=== PATIENT | female | born 1980 | race Caucasian/White ===

== ENCOUNTER 2022-04-28 00:34 | Day surgery (SDC) | payer MEDICARE, SELFPAY ==
[2022-04-21 14:24] VITALS: BMI 25.9
[2022-04-28 12:42] VITALS: BP 105/66; PULSE 82; RESP 18; TEMP 36.6; O2SAT 100
--- NOTE | 2022-04-28 12:47 | PM.IMHP ---
H&P: HPI History of Present Illness Date/Time: 04/28/22 12:47 Chief Complaint: Heartburn Narrative: this is a 42-year-old white female patient with a history of traumatic brain injury. She also has a history of gastric sleeve for weight loss. She has reports for many years has had heartburn and acid regurgitation. When she eats food it will passed slowly into the stomach. She has been treated initially with omeprazole the dose was increased to b.i.d. dose with no change in symptoms. 2-3 weeks ago primary care service change medications to Protonix 40mg p.o. b.i.d. supplemented by Carafate slurry twice a day. Her symptoms have persisted with substernal burning and slow passage of eating through the chest. Patient denies any to weight loss related to this no obvious bleeding an EGD is requested because of ongoing heartburn and substernal burning. Family history is noncontributory. Review of Systems Review of Systems: Review of systems noncontributory. 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 Postsurgical menopause PTSD (post-traumatic stress disorder) Thoracic outlet syndrome Surgical History Surgical History History of gastric surgery Hx of fusion of cervical spine S/P hysterectomy Social History Social History Years smoked: 5 Smoking status: Former smoker Alcohol intake: current Alcohol use details: on occasion Substance use: never Substance use type: marijuana Last use: months ago Living arrangements: with family Spiritual care concerns: No Meds Home Medications and Allergies Home Medications Medication Instructions Recorded Confirmed Type clonazepam 1 mg tablet 1 mg PO TID 03/27/22 04/19/22 History eletriptan 40 mg tablet See Rx Instructions PO .COMPLEX 03/27/22 04/19/22 History esterified 1 tablet PO DAILY 03/27/22 04/19/22 History estrogens-methyltestosterone 1.25 mg-2.5 mg tablet hydroxyzine pamoate 100 mg capsule 100 mg PO BID 03/27/22 04/19/22 History ibuprofen 600 mg tablet 600 mg PO BID PRN Pain 03/27/22 04/19/22 History ivabradine 5 mg tablet (Corlanor) 5 mg PO BID 03/27/22 04/19/22 History methocarbamol 500 mg tablet 1,000 mg PO TID 03/27/22 04/19/22 History pantoprazole 40 mg tablet,delayed 40 mg PO BID #60 tabs 03/27/22 04/19/22 Rx release trazodone 100 mg tablet 200 mg PO QHS PRN Insomnia 03/27/22 04/19/22 History vilazodone 40 mg tablet (Viibryd) 40 mg PO DAILY 03/27/22 04/19/22 History ferrous sulfate 325 mg (65 mg 325 mg PO BID 8 weeks #112 tabs 04/05/22 04/19/22 Rx iron) tablet appbswwtyx-czyeaqogfzwyv-lyhcutij 1 cap PO QID PRN pain #60 caps 04/17/22 04/19/22 Rx 50 mg-300 mg-40 mg capsule (Fioricet) midodrine 2.5 mg tablet 2.5 mg PO BID #60 tabs 04/17/22 04/19/22 Rx rimegepant 75 mg disintegrating 75 mg PO ONCE PRN Pain 04/17/22 04/19/22 History tablet (Nurtec ODT) sucralfate 1 gram tablet See Rx Instructions .Route 04/17/22 04/19/22 Rx .COMPLEX #360 tabs hydrocodone 5 mg-acetaminophen 325 1 tablet PO BID PRN pain #30 tabs 04/19/22 04/20/22 Rx mg tablet vilazodone 40 mg tablet (Viibryd) 40 mg PO DAILY 04/19/22 04/19/22 History Allergies Allergy/AdvReac Type Severity Reaction Status Date / Time gabapentin Allergy Intermediate Depression Verified 04/28/22 12:38 pregabalin [From Lyrica] Allergy Intermediate Depression Verified 04/28/22 12:38 cefaclor Allergy Unknown Hives Verified 04/28/22 12:38 penicillin G Allergy Unknown Hives Verified 04/28/22 12:38 sulfamethizole All
[2022-04-28] MEDS: LACTATED RINGERS 1,000 ML 150 ML IV CONT (12:51)
--- NOTE | 2022-04-28 13:21 | WPDANESEPPF ---
Anes - Initial Pre Proc Eval Procedure: Operation Date: 04/28/22 13:45 Proposed Procedures p Esophagogastroduodenoscopy - Shawn Conner MD Date/Time: 04/28/22 13:21 Surgeon: Shawn Conner MD Pre Op Diagnosis: GERD Patient Data Age: 42 Gender: F Height: 1.78 m Weight: 83.7 kg Last Vital Signs Temp 97.8 F 04/28/22 12:42 Pulse 82 04/28/22 12:42 Resp 18 04/28/22 12:42 BP 105/66 04/28/22 12:42 Pulse Ox 100 04/28/22 12:42 O2 Del Method Room Air 04/28/22 12:42 Allergies Allergy/AdvReac Type Severity Reaction Status Date / Time gabapentin Allergy Intermediate Depression Verified 04/28/22 12:38 pregabalin [From Lyrica] Allergy Intermediate Depression Verified 04/28/22 12:38 cefaclor Allergy Unknown Hives Verified 04/28/22 12:38 penicillin G Allergy Unknown Hives Verified 04/28/22 12:38 sulfamethizole Allergy Unknown Hives Verified 04/28/22 12:38 trimethoprim Allergy Unknown Hives Verified 04/28/22 12:38 KNFA Allergy Unknown Unknown Uncoded 04/28/22 12:38 PCN; SEPTRA; CECLOR Allergy Unknown Hives Uncoded 04/28/22 12:38 Home Medications Medication Instructions Recorded Confirmed Type clonazepam 1 mg tablet 1 mg PO TID 03/27/22 04/19/22 History eletriptan 40 mg tablet See Rx Instructions PO .COMPLEX 03/27/22 04/19/22 History esterified 1 tablet PO DAILY 03/27/22 04/19/22 History estrogens-methyltestosterone 1.25 mg-2.5 mg tablet hydroxyzine pamoate 100 mg capsule 100 mg PO BID 03/27/22 04/19/22 History ibuprofen 600 mg tablet 600 mg PO BID PRN Pain 03/27/22 04/19/22 History ivabradine 5 mg tablet (Corlanor) 5 mg PO BID 03/27/22 04/19/22 History methocarbamol 500 mg tablet 1,000 mg PO TID 03/27/22 04/19/22 History pantoprazole 40 mg tablet,delayed 40 mg PO BID #60 tabs 03/27/22 04/19/22 Rx release trazodone 100 mg tablet 200 mg PO QHS PRN Insomnia 03/27/22 04/19/22 History vilazodone 40 mg tablet (Viibryd) 40 mg PO DAILY 03/27/22 04/19/22 History ferrous sulfate 325 mg (65 mg 325 mg PO BID 8 weeks #112 tabs 04/05/22 04/19/22 Rx iron) tablet sclrsnvoxc-caadqeybsdvyk-uynbqpwq 1 cap PO QID PRN pain #60 caps 04/17/22 04/19/22 Rx 50 mg-300 mg-40 mg capsule (Fioricet) midodrine 2.5 mg tablet 2.5 mg PO BID #60 tabs 04/17/22 04/19/22 Rx rimegepant 75 mg disintegrating 75 mg PO ONCE PRN Pain 04/17/22 04/19/22 History tablet (Nurtec ODT) sucralfate 1 gram tablet See Rx Instructions .Route 04/17/22 04/19/22 Rx .COMPLEX #360 tabs hydrocodone 5 mg-acetaminophen 325 1 tablet PO BID PRN pain #30 tabs 04/19/22 04/20/22 Rx mg tablet vilazodone 40 mg tablet (Viibryd) 40 mg PO DAILY 04/19/22 04/19/22 History Patient hx anesthesia problems: none Family hx anesthesia problems: none Results Review: All pre-operative results and documents have been reviewed as part of the pre-operative evaluation. 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
[2022-04-28 14:16] VITALS: BP 106/68; PULSE 64; RESP 20; O2SAT 100
[2022-04-28 14:26] VITALS: BP 111/71; PULSE 67; RESP 14; O2SAT 100
[2022-04-28 14:36] VITALS: BP 116/72; PULSE 65; RESP 24; O2SAT 100
== END 2022-04-28 14:54 | disposition home or self-care (01) ==
PROVIDERS: PCP Internal Medicine; Visit Provider Internal Medicine Gastroenterology
PROC: 0DJ08ZZ Inspection of Upper Intestinal Tract, Via Natural or Artificial Opening Endoscopic (ICD-10-PCS; CPT 43235; principal; 2022-04-28 13:45)
DX: K21.9 Gastro-esophageal reflux disease without esophagitis (principal); R07.89 Other chest pain; M79.7 Fibromyalgia; F43.10 Post-traumatic stress disorder, unspecified; F32.9 Major depressive disorder, single episode, unspecified; G54.0 Brachial plexus disorders; I95.9 Hypotension, unspecified; E87.1 Hypo-osmolality and hyponatremia; Z98.1 Arthrodesis status; Z87.891 Personal history of nicotine dependence; F12.90 Cannabis use, unspecified, uncomplicated; Z87.820 Personal history of traumatic brain injury; Z98.890 Other specified postprocedural states
CPT/HCPCS: 43239; 87081; J2001; J2704; J7120

== ENCOUNTER 2022-08-29 13:13 | Emergency (ER) | payer MEDICARE, SELFPAY ==
--- NOTE | ~2022-08-29 | XR_ITS ---
AP and oblique views of the right ribs Clinical History: Pain Findings: No acute rib fracture is seen. Osseous alignment is anatomic. Lungs are clear, without foca l consolidation or pleural effusion. Cardiomediastinal contour is within normal limits. Soft tissues are unremarkable. Impression: No acute rib fracture is seen. Reviewed, dictated and finalized at [facility]. URE MANAGER Impression: No acute rib fracture is seen.
[2022-08-29 13:25] VITALS: BP 131/91; PULSE 92; RESP 20; TEMP 36.6; O2SAT 100
[2022-08-29 15:29] VITALS: BP 144/82; PULSE 94; RESP 18; TEMP 36.4; O2SAT 98
== END 2022-08-29 16:39 | disposition left against medical advice (07) ==
LOC: ANHED 17:17
PROVIDERS: Emergency Provider Emergency Medicine; PCP Internal Medicine
DX: R07.81 Pleurodynia (principal)
CPT/HCPCS: 71100; 99199

== ENCOUNTER 2022-08-30 12:40 | Outpatient (CLI) | payer MEDICARE, SELFPAY ==
--- NOTE | ~2022-08-30 | XR_ITS ---
EXAM: XR cervical spine 4-5V DATE: 08/30/2022 13:07 HISTORY: W19.XXXA - FALL WHILE ICE SKATING A FEW DAYS AGO . COMPARISON: None available. FINDINGS: ACDF with well positioned interbody device at C6-7 Craniocervical association and atlantoax ial joint are aligned. No prevertebral soft tissue swelling. Vertebral bodies are aligned. Vertebral body heights are maintained. Mild disc space narrowing and marginal osteophytosis at C4-5 and C5-6. M ild lower cervical facet sclerosis. IMPRESSION: No acute fracture or traumatic malalignment detected in the cervical spine. Reviewed, dictated and finalized at location K. L PRINTER IMPRESSION: No acute fracture or traumatic malalignment detected in the cervica l spine.
--- NOTE | ~2022-08-30 | XR_ITS ---
EXAM: XR shoulder LT min 2V DATE: 08/30/2022 13:07 HISTORY: W19.XXXA - Unspecified fall, initial encounter . COMPARISON: None available. FINDINGS: Partially visualized cervical fusion hardware Normal mineralization. No fracture or disloca tion. No lytic or blastic lesion. Joint spaces are maintained. No erosion or periosteal change. Soft tissues within normal limits. IMPRESSION: Unremarkable left shoulder radiograph findings. Reviewed, dictated and finalized at location K. 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
--- NOTE | ~2022-08-30 | XR_ITS ---
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 RESULT: Lines, tubes, and devices: ACDF hardware. Lungs and pleura: Clear. Cardiothymic silhouette: Stable. Other: No acute osseous or upper abdominal finding. Subacute/chronic right fifth anterolateral rib f racture. IMPRESSION: No acute cardiopulmonary process. Subacute/chronic right fifth anterolateral rib fracture Reviewed, dictated and finalized at location K. STOCK YARD ATTENDANT IMPRESSION: No acute cardiopulmonary process. Subacute/chronic right fifth anterolateral ri b fracture
== END 2022-08-30 12:41 | disposition home or self-care (01) ==
PROVIDERS: PCP Internal Medicine; Visit Provider Internal Medicine
DX: M54.2 Cervicalgia (principal); M25.512 Pain in left shoulder; R07.81 Pleurodynia
CPT/HCPCS: 71046; 71100; 72050; 73030

== ENCOUNTER 2023-02-03 09:05 | Observation (INO) | payer MEDICARE, OTHER, MEDICAID, SELFPAY ==
[2023-02-03] VITALS (22 sets, daily range): BP systolic 119–146; BP diastolic 67–94; PULSE 69–92; RESP 13–23; TEMP 36.4–36.8; O2SAT 98–100
--- NOTE | ~2023-02-03 | MR_ITS ---
EXAMINATION: MR abdomen wo/w con DATE: 02/04/2023 08:55 INDICATION: Liver mass. TECHNIQUE: Magnetic resonance imaging (MRI) of the abdomen was performed without and with 18 mL Multi Miles intravenous contrast. COMPARISON: CT abdomen and pelvis 02/03/2023, abdomen ultrasound 02/04/2023 FINDINGS: In segment IVb of the liver, there is a 2.5 cm arterially hyperenhancing mass without washout that de monstrates faintly increased T2-weighted signal intensity. No central scar or microscopic fat. The ga llbladder, spleen, pancreas, adrenal glands, and kidneys are normal. There are no dilated loops of gricelda wel. There are no pathologically enlarged lymph nodes. There is no free intraperitoneal fluid. There is a hemangioma in L2 vertebral body. IMPRESSION: 1. 2.5 cm liver mass. In the absence of known malignancy or chronic liver disease, this finding is li kathryn focal nodular hyperplasia or an adenoma. Reviewed, dictated and finalized at location E. IMPRESSION: 1. 2.5 cm liver mass. In the absence of known malignancy or chronic liver disea se, this finding is likely focal nodular hyperplasia or an adenoma.
--- NOTE | ~2023-02-03 | CT_ITS ---
EXAMINATION: CT abdomen pelvis w con DATE: 02/03/2023 10:33 INDICATION: Transaminitis TECHNIQUE: Computed tomography (CT) of the abdomen and pelvis was performed with 100 cc Omnipaque 350 intravenous contrast. The dose-length product was 792.79 mGy-cm. Automated exposure control and iter ative reconstruction technique were employed. COMPARISON: None. FINDINGS: Lung bases are unremarkable. Heart size normal. No significant pleural or pericardial effus ion. There are changes of gastric bypass surgery. No significant vascular abnormality. No lymphadenop athy. There is a hypervascular lesion of the left hepatic lobe contiguous with the falciform ligament measu ring 2.7 x 2.8 x 2 cm with a slightly irregular contour. Spleen, pancreas, adrenal glands and kidney s are unremarkable. Gallbladder is present. There is fluid throughout the small bowel and colon. No d efinite obstruction. Gallbladder is present. No free air or free fluid. IMPRESSION: 1. Solitary hypervascular mass of the liver measuring 2.8 cm. Differential diagnosis includes transie nt hepatic attenuation, focal fatty sparing, benign hepatic adenoma or hemangioma, as well as primary and metastatic malignancy. Recommend correlation with MRI without and with contrast with delayed seq uences. Reviewed, dictated and finalized at location A. IMPRESSION: 1. Solitary hypervascular mass of the liver measuring 2.8 cm. Differential diag nosis includes transient hepatic attenuation, focal fatty sparing, benign hepat ic adenoma or hemangioma, as well as primary and metastatic malignancy. Recomme nd correlation with MRI without and with contrast with delayed sequences.
--- NOTE | ~2023-02-03 | US_ITS ---
US abdomen limited INDICATION: Liver mass PROCEDURE: Realtime right upper abdominal ultrasound. COMPARISON: No prior studies for comparison. FINDINGS: The pancreas is normal without focal mass or pancreatic ductal dilation. Liver echotexture is normal without focal mass or intrahepatic biliary dilatation. There is normal directional flow i n the portal vein. The gallbladder is normal without stones, gallbladder wall thickening or pericholecystic fluid. Comm on bile duct measures 4 mm. No sonographic Newton's sign. IMPRESSION: 1: Normal limited abdominal ultrasound. Reviewed, dictated and finalized at location A.
[2023-02-03 09:52] LABS: Basophils Percent Auto 0.6 % (0.2-1.2); Eosinophils Percent Auto 0.2 % (0-4.4); Hematocrit 40.9 % (37.0-47.0); Hemoglobin 13.4 g/dL (12.0-15.0); Immature Granulocyte Absolute 0.02 K/mm3 (0.00-0.031); Immature Granulocyte Percent A 0.3 % (0-0.5); Lymphocytes Absolute Auto 2.02 K/mm3 (0.9-3.2); Lymphocytes Percent Auto 30.4 % (18.3-44.2); Mean Corpuscular HGB Conc 32.8 g/dl (32-36); Mean Corpuscular Hemoglobin 29.1 pg (26-34); Mean Corpuscular Volume 88.9 fl (80-100); Mean Platelet Volume 8.7 fl (7.4-10.4); Monocytes Absolute Auto 0.6 K/mm3 (0.1-0.6); Monocytes Percent Auto 8.4 % (2.6-8.5); Neutrophils Percent Auto 60.1 % (45.5-73.1); Platelet Count Result 366 k/mm3 (150-375); White Blood Count 6.7 K/mm3 (4.5-10.0)
[2023-02-03 10:05] LABS: Albumin Level 4.7 g/dL (3.5-5.1); Alkaline Phosphatase 89 U/L (38-126); Anion Gap 5 mmol/L (8-16); Aspartate Amino Transferase 341 U/L (14-36); Bilirubin,Total 0.6 mg/dL (0.2-1.3); Blood Urea Nitrogen 11 mg/dL (7-17); Carbon Dioxide 31 mmol/L (22-30); Chloride 96 mmol/L (98-107); Estimated Glomerular Filt Rate > 60; Glucose 83 mg/dL (65-110); Potassium 4.1 mmol/L (3.4-5.0); Sodium 132 mmol/L (137-145)
[2023-02-03 10:13] LABS: Alanine Aminotransferase 796 U/L (6-35)
[2023-02-03 10:15] LABS: Monoscreen Negative (Negative); Negative Monotest Control Negative (Negative); Positive Monotest Control Positive (Positive)
[2023-02-03 10:21] LABS: Appearance Urine Cloudy (Clear); Bacteria Urine Rare /hpf; Bilirubin Urine Negative (Negative); Blood Urine Negative (Negative); Color Urine Yellow (Yellow); Glucose Urine UA Negative (Negative); Ketones Urine Negative (Negative); Leukocyte Esterase Ur 2+ LEU/UL (Negative); Need Manual Microscopic Reviewed; Nitrate Urine Negative (Negative); Non Pathogenic Casts 0-2; Protein Urine Negative (Negative); RBC Urine 0-2 /hpf (0-2); Squamous Epithelial Cell Urine Moderate /hpf (Few); Urobilinogen Urine 0.2 mg/dL (<2.0); WBC Urine 0-5 /hpf; pH Urine 7.5 (5.0-9.0)
[2023-02-03 10:23] LABS: Add Urine Microscopic? YES
[2023-02-03 10:35] LABS: Hepatitis B Surface Antigen Negative (Negative)
[2023-02-03 10:41] LABS: HAV RESULT Negative (Negative); Hepatitis B Core IgM Result Negative (Negative)
[2023-02-03 10:53] LABS: Hepatitis C Virus Antibody Negative (Negative)
--- NOTE | 2023-02-03 11:08 | ED.GENADULT ---
HPI - General Adult General Chief complaint: Recheck/Abnormal Lab/Rx Stated complaint: dr sent for blood work/US Time Seen by Provider: 02/03/23 09:17 History of Present Illness HPI narrative: Patient is a 41-year-old female who presents ER with abnormal outpatient labs. She had an abnormal AST and ALT and was sent here by her PCP in for further evaluation. She has been having some issues with hyponatremia instantly discontinuing her medication and then slowly adding them back. She has a history of been getting regular lab work done today and expected AST and ALT came back elevated. She has no right upper quadrant abdominal pain or pain with drinking. She said no fevers or chills or sweats. No unexplained weight loss nausea reports 20 pound weight gain. She feels some slight bloating in her lower abdomen but no urinary frequency urgency or dysuria. No discoloration in urine. Related Data Home Medications Medication Instructions Recorded Confirmed clonazepam 1 mg tablet 1 mg PO QID 02/03/23 02/03/23 duloxetine 60 mg capsule,delayed 60 mg PO DAILY 02/03/23 02/03/23 release eletriptan 40 mg tablet 40 mg PO BID PRN Migraine Headache 02/03/23 02/03/23 estradiol 1 mg tablet 1 mg PO QAM 02/03/23 02/03/23 hydroxyzine pamoate 100 mg capsule 100 mg PO BID 02/03/23 02/03/23 ivabradine 5 mg tablet (Corlanor) 5 mg PO BID 02/03/23 02/03/23 lidocaine 5 % topical patch 1 patch topical DAILY PRN Pain 02/03/23 02/03/23 midodrine 2.5 mg tablet 5 mg PO BID 02/03/23 02/03/23 pantoprazole 40 mg tablet,delayed 40 mg PO BID 02/03/23 02/03/23 release promethazine 25 mg tablet 25 mg PO Q6H PRN Nausea 02/03/23 02/03/23 rimegepant 75 mg disintegrating 75 mg PO EVERY OTHER DAY 02/03/23 02/03/23 tablet (Nurtec ODT) sucralfate 1 gram tablet 1 g PO BID PRN Acid Reflux 02/03/23 02/03/23 sumatriptan succinate 100 mg tablet 100 mg PO BID PRN Migraine Headache 02/03/23 02/03/23 suvorexant 10 mg tablet (Belsomra) 20 mg PO HS 02/03/23 02/03/23 vilazodone 40 mg tablet 40 mg PO DAILY 02/03/23 02/03/23 Allergies Allergy/AdvReac Type Severity Reaction Status Date / Time cefaclor [From Ceclor] Allergy Unknown Verified 02/03/23 15:41 gabapentin Allergy Unknown Verified 02/03/23 15:41 Penicillins Allergy Unknown Verified 02/03/23 15:41 pregabalin [From Lyrica] Allergy Unknown Verified 02/03/23 15:41 sulfamethoxazole Allergy Unknown Verified 02/03/23 15:41 [From Septra] trimethoprim [From Septra] Allergy Unknown Verified 02/03/23 15:41 Review of Systems Review of Systems: All systems reviewed & are unremarkable except as noted in HPI and below Constitutional: Constitutional: Denies chills, Denies fatigue and Denies fever(s) ENT: Denies nasal congestion and Denies sore throat Cardiovascular: Cardiovascular: Denies chest pain, Denies rapid heart rate and Denies radiating jaw, neck or arm pain Respiratory: Respiratory: Denies cough and Denies dyspnea Gastrointestinal: Gastrointestinal: Denies abdominal pain, Denies diarrhea, Denies nausea and Denies vomiting Genitourinary: Genitourinary: Denies nocturia and Denies dysuria [facility] Past Medical History Medical History (Updated 02/03/23 @ 17:57 by Yesica Damon NP) Chronic diarrhea Chronic pain Elevated liver enzymes Migraine Orthostatic hypotension POTS (postural orthostatic tachycardia syndrome) PTSD (post-traumatic stress disorder) Rib fracture Thoracic outlet syndrome Surgical History Surgical History (Updated 02/03/23 @ 17:38 by Yesica Damon NP) H/O gastric sleeve H/O oophorectomy H/O: hysterectomy History of tonsillectomy S/P cervical spinal fusion Family History Family History (Updated 02/03/23 @ 17:43 by Yesica Damon NP) Sibling Rheumatoid arthritis Psoriatic arthritis Pancreatitis Lupus Social History Social History Smoking status: Former smoker Alcohol intake: former Substance use: current Substance use type: marijuana Lack of Transpor
--- NOTE | 2023-02-03 12:30 | ADMGEN ---
This patient, Amber Rodriguez, was admitted to Medical Room 347-. Patient/family oriented to hospital policies and general routines including ID bracelet, bed and alarms, visiting hours, pain management, procedures, bathroom and other care routines, personal items, smoking policy, room service/diet, and visiting hours. Information on how to activate the Rapid Response Team has been discussed. Patient/Family are encouraged to report perceived risks to care and to ask questions if they do not understand what they are told or what they should do.
--- NOTE | 2023-02-03 12:47 | PM.IMHP ---
H&P: HPI History of Present Illness Date/Time: 02/03/23 12:47 Chief Complaint: ABNORMAL LABS Narrative: Is a 42-year-old female patient who stated that she had labs and and imaging performed and she checked her portal and noticed that she had elevated liver enzymes. Her primary care doctor stated that she would be worked up next week and then he returned to full called ordered to come to the emergency room. The patient stated that she has thoracic outlet syndrome. The patient states that she has chronic pain to her lower pelvic area as well. Her sodium level is 132. AST is 341 and ALT 796. Abdominal pelvis CT was read as following. Solitary hypervascular mass of the liver measuring 2.8 cm. Differential diagnosis includes transient hepatic attenuation, focal fatty sparing, benign hepatic adenoma or hemangioma, as well as primary and metastatic malignancy. Recommend correlation with MRI without and with contrast with delayed sequences. the patient was complaining of lower pelvic pain which is chronic. She was given Motrin. She was given Zofran in the in emergency room. The patient is being admitted to observation status on the date of service is 02/03/2023 Review of Systems Review of Systems: All systems reviewed & are unremarkable except as noted in HPI and below Constitutional: Constitutional: Reports as per HPI and Reports no additional constitutional complaints Eyes: Eyes: Reports as per HPI and Reports no additional eye complaints ENT: Reports system reviewed and no additional complaints, except as documented and Reports Normal hearing present Cardiovascular: Cardiovascular: Reports no additional cardiovascular complaints Respiratory: Respiratory: Reports no additional respiratory complaints and Reports no additional respiratory complaints Gastrointestinal: Gastrointestinal: Reports as per HPI and Reports no additional gastrointestinal complaints Musculoskeletal: Musculoskeletal: Reports no additional musculoskeletal complaints Integumentary/Breasts: Skin/Breast: Reports system reviewed and no additional complaints, except as docu and Reports as per HPI Neurologic: Reports system reviewed and no additional complaints, except as documented, Reports as per HPI and Reports Normal hearing present Psychiatric: Psychiatric: Reports no additional psychiatric complaints and Reports as per HPI Endocrine: Endocrine: Reports no additional endocrine complaints Hematologic/Lymphatic: Hematologic/Lymphatic: Reports no additional hematologic/lymphatic complaints Allergic/Immunologic: Allergic/Immunologic: Reports no additional allergic/immunologic complaints [facility] Past Medical History Medical History (Updated 02/03/23 @ 17:57 by Yesica Damon NP) Chronic diarrhea Chronic pain Elevated liver enzymes Migraine Orthostatic hypotension POTS (postural orthostatic tachycardia syndrome) PTSD (post-traumatic stress disorder) Rib fracture Thoracic outlet syndrome Surgical History Surgical History (Updated 02/03/23 @ 17:38 by Yesica Damon NP) H/O gastric sleeve H/O oophorectomy H/O: hysterectomy History of tonsillectomy S/P cervical spinal fusion Family History Family History (Updated 02/03/23 @ 17:43 by Yesica Damon NP) Sibling Rheumatoid arthritis Psoriatic arthritis Pancreatitis Lupus Social History Social History Smoking status: Former smoker Alcohol intake: former Substance use: current Substance use type: marijuana Lack of Transportation: No Lack of Food: Never True Current Housing: I Have Housing Concerned About Future Housing: No Difficulty Paying Gas/Electric Bills: No Difficulty Paying for Meds: No Currently Unemployed: No Education: Trade/Vocational Certificate Difficulty w/ Childcare or Family Care: No Spiritual care concerns: No Meds Home Medications and Allergies Home Medications Medication Instructions Recorded Confirmed Type clonazepa
[2023-02-03] MEDS: MIDODRINE HCL 2.5 MG TABLET 5 MG PO (18:10)
[2023-02-03] MEDS: hydrOXYzine pamoate 25 MG CAPSULE 100 MG PO (18:10)
[2023-02-03] MEDS: clonazePAM (*CRX) 0.5 MG TABLET 1 MG PO ×2 (18:16→21:31)
[2023-02-03] MEDS: LIDOCAINE 5% PATCH 1 PATCH TOPICAL (18:27)
[2023-02-03] MEDS: PANTOPRAZOLE 40 MG TABLET PO (21:31)
[2023-02-03] MEDS: LORazepam INJ (*CRX) 2 MG/ML VIAL 0.5 MG IV PUSH (21:31)
[2023-02-04] MEDS: LORazepam INJ (*CRX) 2 MG/ML VIAL 0.5 MG IV PUSH ×4 (01:28→20:27)
[2023-02-04 04:51] VITALS: BP 118/67; PULSE 91; RESP 20; TEMP 36.1; O2SAT 100
[2023-02-04 05:30] LABS: Basophils Percent Auto 0.5 % (0.2-1.2); Eosinophils Percent Auto 0.5 % (0-4.4); Hematocrit 38.2 % (37.0-47.0); Hemoglobin 12.8 g/dL (12.0-15.0); Immature Granulocyte Absolute 0.02 K/mm3 (0.00-0.031); Immature Granulocyte Percent A 0.3 % (0-0.5); Lymphocytes Absolute Auto 2.88 K/mm3 (0.9-3.2); Lymphocytes Percent Auto 50.1 % (18.3-44.2); Mean Corpuscular HGB Conc 33.5 g/dl (32-36); Mean Corpuscular Hemoglobin 29.5 pg (26-34); Mean Platelet Volume 8.6 fl (7.4-10.4); Monocytes Absolute Auto 0.6 K/mm3 (0.1-0.6); Monocytes Percent Auto 9.7 % (2.6-8.5); Neutrophils Absolute Auto 2.2 K/mm3 (1.3-6.7); Neutrophils Percent Auto 38.9 % (45.5-73.1); Platelet Count Result 319 k/mm3 (150-375); Red Blood Count 4.34 M/mm3 (4.2-5.4); Red Cell Distribution Width 12.9 % (11.5-14.5); White Blood Count 5.8 K/mm3 (4.5-10.0)
[2023-02-04] MEDS: SUMAtriptan SUCCINATE 25 MG TABLET 100 MG PO ×2 (05:34→14:19)
[2023-02-04 05:39] LABS: Alanine Aminotransferase 563 U/L (6-35); Albumin Level 4.3 g/dL (3.5-5.1); Alkaline Phosphatase 90 U/L (38-126); Anion Gap 5 mmol/L (8-16); Aspartate Amino Transferase 179 U/L (14-36); Bilirubin,Total 0.5 mg/dL (0.2-1.3); Blood Urea Nitrogen 8 mg/dL (7-17); Calcium 8.9 mg/dL (8.4-10.2); Carbon Dioxide 31 mmol/L (22-30); Chloride 98 mmol/L (98-107); Estimated Glomerular Filt Rate > 60; Glucose 89 mg/dL (65-110); Lactate Dehydrogenase 175 U/L (120-246); Magnesium 2.1 mg/dL (1.6-2.3); Potassium 4.3 mmol/L (3.4-5.0); Sodium 134 mmol/L (137-145)
[2023-02-04 05:46] LABS: Lactic Acid Reflex < 0.5 mmol/L (0.7-2.0)
[2023-02-04] MEDS: LORazepam INJ (*CRX) 2 MG/ML VIAL IV PUSH (07:54)
[2023-02-04] MEDS: clonazePAM (*CRX) 0.5 MG TABLET 1 MG PO ×4 (09:28→20:27)
[2023-02-04] MEDS: MIDODRINE HCL 2.5 MG TABLET 5 MG PO ×2 (09:29→17:02)
[2023-02-04] MEDS: PANTOPRAZOLE 40 MG TABLET PO ×2 (09:29→20:27)
[2023-02-04 09:30] VITALS: PULSE 91; RESP 20; O2SAT 100
[2023-02-04] MEDS: estradioL 1 MG TABLET PO (09:30)
[2023-02-04] MEDS: hydrOXYzine pamoate 25 MG CAPSULE 100 MG PO ×2 (09:30→17:02)
--- NOTE | 2023-02-04 09:56 | PM.IMPN ---
Progress Note: A&P Assessment and Plan (1) Liver mass: Code(s): R16.0 - Hepatomegaly, not elsewhere classified Status: Acute Assessment and Plan: MRI of the abdomen done, report pending. Liver ultrasound normal GI has been consulted. CT abdomen: 1. Solitary hypervascular mass of the liver measuring 2.8 cm. Differential diagnosis includes transient hepatic attenuation, focal fatty sparing, benign hepatic adenoma or hemangioma, as well as primary and metastatic malignancy. Recommend correlation with MRI without and with contrast with delayed sequences. (2) Elevated liver enzymes: Code(s): R74.8 - Abnormal levels of other serum enzymes Status: Acute Assessment and Plan: Trending down GI has been consulted Ultrasound of the abdomen normal MRI done, report pending Hepatitis panel negative. (3) Chronic pain: Code(s): G89.29 - Other chronic pain Status: Acute Assessment and Plan: The patient has a history of migraines. Duloxetine can elevate the liver enzymes. May resume if okay with GI specialist. (4) POTS (postural orthostatic tachycardia syndrome): Code(s): G90.A - Postural orthostatic tachycardia syndrome [POTS] Status: Acute Assessment and Plan: The patient will need compression hose. Continue with midodrine (5) Thoracic outlet syndrome: Code(s): G54.0 - Brachial plexus disorders Status: Acute Assessment and Plan: the patient is on duloxetine. May resume if okay with GI specialist. (6) Migraine: Code(s): G43.909 - Migraine, unspecified, not intractable, without status migrainosus Status: Acute Assessment and Plan: Continue home medication (7) PTSD (post-traumatic stress disorder): Code(s): F43.10 - Post-traumatic stress disorder, unspecified Status: Acute Assessment and Plan: continue home medications. Subjective Date/time seen: 02/04/23 09:56 Interval history: No abdominal pain, nausea vomiting Review of Systems Review of Systems: All systems reviewed & are unremarkable except as noted in HPI and below Constitutional: Constitutional: Reports as per HPI and Reports no additional constitutional complaints Eyes: Eyes: Reports as per HPI and Reports no additional eye complaints ENT: Reports system reviewed and no additional complaints, except as documented and Reports Normal hearing present Cardiovascular: Cardiovascular: Reports no additional cardiovascular complaints Respiratory: Respiratory: Reports no additional respiratory complaints and Reports no additional respiratory complaints Gastrointestinal: Gastrointestinal: Reports as per HPI and Reports no additional gastrointestinal complaints Musculoskeletal: Musculoskeletal: Reports no additional musculoskeletal complaints Integumentary/Breasts: Skin/Breast: Reports system reviewed and no additional complaints, except as docu and Reports as per HPI Neurologic: Reports system reviewed and no additional complaints, except as documented, Reports as per HPI and Reports Normal hearing present Psychiatric: Psychiatric: Reports no additional psychiatric complaints and Reports as per HPI Endocrine: Endocrine: Reports no additional endocrine complaints Hematologic/Lymphatic: Hematologic/Lymphatic: Reports no additional hematologic/lymphatic complaints Allergic/Immunologic: Allergic/Immunologic: Reports no additional allergic/immunologic complaints Exam Const: General: cooperative, healthy appearing, comfortable, no acute distress, well developed, awake, Physically active, average body habitus and well nourished Nutritional Appearance: average body habitus and well nourished Orientation/consciousness: oriented to person, oriented to place, oriented to time and patient oriented x3 Limitations: no limitations HENMT: Head: normal to inspection, No palpable skull fracture present, normocephalic, atraumatic and
[2023-02-04 17:11] VITALS: BP 141/82; PULSE 57; RESP 16; TEMP 36.7; O2SAT 100
--- NOTE | 2023-02-04 18:32 | WPDGICN ---
Assessment and Plan Assessment and plan (1) Elevated liver enzymes: Code(s): R74.8 - Abnormal levels of other serum enzymes Status: Acute Assessment and Plan: work up in progress (will order more blood work to assess other liver condition but also can be completed as outpatient), noted she is on several medications (for migraines, ptsd, etc) no hepatitis no alcohol use no abdominal pain (2) Liver mass: Code(s): R16.0 - Hepatomegaly, not elsewhere classified Status: Acute Assessment and Plan: it seems to be benign condition based on mri may need follow-up imaging in 6 months and repeat liver enzymes (3) Chronic diarrhea: Code(s): K52.9 - Noninfective gastroenteritis and colitis, unspecified Status: Acute Assessment and Plan: had colonoscopy few years ago (4) Migraine: Code(s): G43.909 - Migraine, unspecified, not intractable, without status migrainosus Status: Acute Assessment and Plan: on meds (5) POTS (postural orthostatic tachycardia syndrome): Code(s): G90.A - Postural orthostatic tachycardia syndrome [POTS] Status: Acute (6) Chronic pain: Code(s): G89.29 - Other chronic pain Status: Acute (7) Thoracic outlet syndrome: Code(s): G54.0 - Brachial plexus disorders Status: Acute (8) PTSD (post-traumatic stress disorder): Code(s): F43.10 - Post-traumatic stress disorder, unspecified Status: Acute GI Consult Note Consult date/time: 02/04/23 18:32 Reason for consult: elevated liver enzymes, liver lesion HPI: Amber Rodriguez is a 42 year old female with history of POTS (diagnosed about 2 years ago after had syncopal episode), depression, ptsd on different medications (recently her belsomra and klonopin dose increased), migraines on meds. She had routine blood work and found to have transaminases 300-700, normal bili and denies history of liver disease. Denies acetaminophen, alcohol use, no history of hepatitis, no history of liver disease. She was told to come to ER for further evaluation, had CT scan that showed solitary hypervascular mass of the liver measuring 2.8 cm. Differential diagnosis includes transient hepatic attenuation, focal fatty sparing, benign hepatic adenoma or hemangioma, as well as primary and metastatic malignancy. Finally MRI showed 2.5 cm lesion- likely focal nodular hyperplasia or an adenoma. Denies weight loss or nausea. She had EGD last year for symptomatic gerd, had colonoscopy about 3 years ago (had h/o diarrhea). Review of Systems Constitutional: Constitutional: Denies chills and Denies fatigue Eyes: Eyes: Denies blurry vision ENT: Reports Normal hearing present Cardiovascular: Cardiovascular: Denies chest pain Respiratory: Respiratory: Denies chest congestion Gastrointestinal: Gastrointestinal: Denies abdominal pain Genitourinary: Genitourinary: Denies hematuria Musculoskeletal: Musculoskeletal: Denies arthralgias Integumentary/Breasts: Skin/Breast: Denies rash Neurologic: Denies Abnormal speech present Psychiatric: Psychiatric: Reports anxiety and Denies behavioral changes PMF Past Medical History Medical History (Updated 02/03/23 @ 17:57 by Yesica Damon NP) Chronic diarrhea Chronic pain Elevated liver enzymes Migraine Orthostatic hypotension POTS (postural orthostatic tachycardia syndrome) PTSD (post-traumatic stress disorder) Rib fracture Thoracic outlet syndrome Surgical History Surgical History (Updated 02/03/23 @ 17:38 by Yesica Damon NP) H/O gastric sleeve H/O oophorectomy H/O: hysterectomy History of tonsillectomy S/P cervical spinal fusion Family History Family History (Updated 02/03/23 @ 17:43 by Yesica Damon NP) Sibling Rheumatoid arthritis Psoriatic arthritis Pancreatitis Lupus Social History Social History Smoking status: Former smoker Alcohol intake: former Substance use: current Subs
[2023-02-04] MEDS: LIDOCAINE 5% PATCH 1 PATCH TOPICAL (20:27)
[2023-02-04 20:39] VITALS: BP 136/89; PULSE 74; RESP 18; TEMP 36.6; O2SAT 96
[2023-02-05] MEDS: LORazepam INJ (*CRX) 2 MG/ML VIAL 0.5 MG IV PUSH (03:50)
[2023-02-05 06:00] VITALS: BP 127/77; PULSE 73; RESP 18; TEMP 36.6; O2SAT 98
[2023-02-05 07:01] LABS: Iron 88 ug/dL (37-170)
[2023-02-05 07:19] LABS: Percent Iron Saturation 34 % (20-50)
[2023-02-05 09:09] LABS: Alanine Aminotransferase 448 U/L (6-35); Albumin Level 4.2 g/dL (3.5-5.1); Alkaline Phosphatase 86 U/L (38-126); Aspartate Amino Transferase 111 U/L (14-36); Bilirubin,Total 0.5 mg/dL (0.2-1.3)
[2023-02-05] MEDS: clonazePAM (*CRX) 0.5 MG TABLET 1 MG PO (09:49)
[2023-02-05] MEDS: hydrOXYzine pamoate 25 MG CAPSULE 100 MG PO (09:50)
[2023-02-05] MEDS: MIDODRINE HCL 2.5 MG TABLET 5 MG PO (09:50)
[2023-02-05] MEDS: PANTOPRAZOLE 40 MG TABLET PO (09:50)
[2023-02-05] MEDS: estradioL 1 MG TABLET PO (09:50)
[2023-02-05] MEDS: SUMAtriptan SUCCINATE 25 MG TABLET 100 MG PO (09:51)
--- NOTE | 2023-02-05 10:19 | PM.DS ---
DS: Admitting Diagnosis Discharge Date 02/05/2023 Admitting Diagnosis Elevated LFTs DS: Discharge Diagnosis Discharge Diagnosis (1) Liver mass: Code(s): R16.0 - Hepatomegaly, not elsewhere classified Status: Acute (2) Elevated liver enzymes: Code(s): R74.8 - Abnormal levels of other serum enzymes Status: Acute DS: Summary Hospital Course Hospital Course: Assessment and Plan (1) Liver mass: ?Code(s): R16.0 - Hepatomegaly, not elsewhere classified ?Status:?Acute ?Assessment and Plan: ?MRI of the abdomen done, report pending.? Liver ultrasound normal ? GI has been consulted. CT abdomen: Solitary hypervascular mass of the liver measuring 2.8 cm. Differential diagnosis includes transient hepatic attenuation, focal fatty sparing, benign hepatic adenoma or hemangioma, as well as primary and metastatic malignancy. Recommend correlation with MRI without and with contrast with delayed sequences. MRI abdomen:. 2.5 cm liver mass. In the absence of known malignancy or chronic liver disease, this finding is likely focal nodular hyperplasia or an adenoma. ? (2) Elevated liver enzymes: ?Code(s): R74.8 - Abnormal levels of other serum enzymes ?Status:?Acute ?Assessment and Plan: Trending down ? GI has been consulted ? Ultrasound of the abdomen normal MRI done, report pending ? Hepatitis panel negative. (3) Chronic pain: ?Code(s): G89.29 - Other chronic pain ?Status:?Acute ?Assessment and Plan: ? The patient has a history of migraines.? Duloxetine can elevate the liver enzymes.? May resume if okay with GI specialist. (4) POTS (postural orthostatic tachycardia syndrome): ?Code(s): G90.A - Postural orthostatic tachycardia syndrome [POTS] ?Status:?Acute ?Assessment and Plan: ? The patient will need compression hose.? Continue with midodrine (5) Thoracic outlet syndrome: ?Code(s): G54.0 - Brachial plexus disorders ?Status:?Acute ?Assessment and Plan: ?the patient is on duloxetine.? May resume if okay with GI specialist. (6) Migraine: ?Code(s): G43.909 - Migraine, unspecified, not intractable, without status migrainosus ?Status:?Acute ?Assessment and Plan: ? Continue home medication (7) PTSD (post-traumatic stress disorder): ?Code(s): F43.10 - Post-traumatic stress disorder, unspecified ?Status:?Acute ?Assessment and Plan: ?continue home medications. MRI abdomen shows adenoma. LFTs trending down. Patient stable to be discharged home Time Spent with Patient Time attestation: Total time spent providing and/or coordinating discharge services: DS: Data Data Completed and Pending Labs on day of discharge: Labs from last 24 hours 02/05/23 02/05/23 05:26 05:25 Iron 88 TIBC 259 L % Saturation 34 Ferritin 69.10 Total Bilirubin 0.5 Direct Bilirubin 0.0 AST 111 H ALT 448 H Alkaline Phosphatase 86 Total Protein 7.0 Albumin 4.2 Alpha-1-AT Phenotype Pending Ceruloplasmin Pending RUBA Screen Pending Mitochondria M2 IgG Ab Pending Discharge Plan Discharge Consulting providers: Jb Castillo Discharging Clinician: Zan Butterfield Anticipated Discharge Date/Time: 02/05/23 10:18 Patient Disposition: Home, Self-Care Activity: no preference Diet: regular Patient Instructions: Antibiotic Form Stand Alone Forms: General Discharge Information Follow-up/Referrals: Griffin Richardson MD [Primary Care Provider] - Discharge Medications: Continued hydroxyzine pamoate 100 mg capsule 100 mg PO BID sumatriptan succinate 100 mg tablet 100 mg PO BID PRN (Reason: Migraine Headache) sucralfate 1 gram tablet 1 g PO BID PRN (Reason: Acid Reflux) clonazepam 1 mg tablet 1 mg PO QID estradiol 1 mg tablet 1 mg PO QAM pantoprazole 40 mg tablet,delayed release (DR/EC) 40 mg PO BID lidocaine 5 % adhesive pa
[2023-02-08 19:53] LABS: Ceruloplasmin 33 mg/dL (18-53)
[2023-02-08 22:16] LABS: Mitochondrial (M2) Ab (IgG) <=20.0 U (<=20.0)
== END 2023-02-05 11:18 | disposition home or self-care (01) ==
LOC: ANHED 09:34 → ANH3MED 17:37
PROVIDERS: Internal Medicine Gastroenterology; Nurse Practitioner; Admitting Provider Family Medicine; Emergency Provider Emergency Medicine; PCP Internal Medicine; Visit Provider Hospitalist
DX: R16.0 Hepatomegaly, not elsewhere classified (principal); R74.8 Abnormal levels of other serum enzymes; G89.29 Other chronic pain; G90.A Postural orthostatic tachycardia syndrome [POTS]; G54.0 Brachial plexus disorders; G43.909 Migraine, unspecified, not intractable, without status migrainosus; F43.10 Post-traumatic stress disorder, unspecified; R14.0 Abdominal distension (gaseous); E87.1 Hypo-osmolality and hyponatremia; Z91.148 Patient's other noncompliance with medication regimen for other reason; R63.5 Abnormal weight gain; K52.9 Noninfective gastroenteritis and colitis, unspecified; Z98.84 Bariatric surgery status; F12.90 Cannabis use, unspecified, uncomplicated; Z87.891 Personal history of nicotine dependence; Z79.3 Long term (current) use of hormonal contraceptives; Z79.899 Other long term (current) drug therapy
CPT/HCPCS: 36415; 74177; 74183; 76705; 80053; 80074; 80076; 81001; 82104; 82390; 82728; 83520; 83540; 83550; 83605; 83615; 83735; 84443; 85025; 86038; 86308; 96374; 96376; 99285; A9270; A9577; G0378; J2060; Q9967

== ENCOUNTER 2023-03-16 07:57 | Observation (INO) | payer MEDICARE, OTHER, MEDICAID, SELFPAY ==
--- NOTE | ~2023-03-16 | MR_ITS ---
EXAMINATION: MR lumbar spine wo con DATE: 03/16/2023 18:10 INDICATION: back pain, abnormal lumbar CT . TECHNIQUE: Magnetic resonance imaging (MRI) of the lumbar spine was performed without intravenous con trast. Sequences included sagittal T2-weighted FSE, sagittal T2-weighted FS FSE, sagittal T1-weighted FSE, and axial T2-weighted FSE. COMPARISON: CT thoracic and lumbar spine, same date FINDINGS: Respiratory motion artifact present in the axial images. The last fully formed and hydrated disc is designated L5-S1. Focal marrow edema in the left L5 pars intraarticularis and the right infe rior articulating facet of L4. Conus terminates at L1-2. The discs are well hydrated. Mild loss of di sc height at L5-S1. Rudimentary disc at S1-S2. The following disc levels are specifically discussed: T11-T12: The disc does not extend beyond the endplate margin. There is no facet joint osteoarthritis. There is no neural foraminal stenosis. There is no central canal stenosis. T12-L1: The disc does not extend beyond the endplate margin. There is mild facet joint osteoarthritis . There is no neural foraminal stenosis. There is no central canal stenosis. L1-L2: Mild diffuse bulge. There is mild facet joint osteoarthritis. There is no neural foraminal kary nosis. There is no central canal stenosis. L2-L3: Mild diffuse bulge There is moderate facet joint osteoarthritis. There is no neural foraminal stenosis. There is no central canal stenosis. L3-L4: Mild diffuse bulge There is moderate facet joint osteoarthritis. There is mild bilateral infer ior neural foraminal stenosis. There is no central canal stenosis. L4-L5: Moderate diffuse bulge. There is severe facet joint osteoarthritis. Large anteriorly directed osteophyte and 9 x 19 mm synovial cyst which projected into the left lateral recess at this level. Th e thecal sac and adjacent nerve roots are displaced. There is severe left and moderate right neural f oraminal stenosis. There is moderate central canal stenosis. L5-S1: Mild diffuse bulge There is moderate facet joint osteoarthritis. There is moderate bilateral n eural foraminal stenosis. There is no central canal stenosis. IMPRESSION: Anteriorly directed left L4-5 osteophyte and synovial cyst cause severe lateral recess narrowing, sev ere narrowing of the entrance of the left L4-5 foramen, and displace the adjacent thecal sac and nerv e roots. No disc extrusion detected at this level. Right L4 inferior articulating facet of marrow changes may be reactive edema to the severe adjacent d egenerative facet joint changes, marrow contusion, or incomplete fracture. Early/incomplete left L5 pars defect. Multilevel mild lumbar degenerative disc disease. Multilevel moderate facet arthropathy. Reviewed, dictated and finalized at location K. IMPRESSION: Anteriorly directed left L4-5 osteophyte and synovial cyst cause severe lateral recess narrowing, severe narrowing of the entrance of the left L4-5 foramen, a nd displace the adjacent thecal sac and nerve roots. No disc extrusion detected at this level. Right L4 inferior articulating facet of marrow changes may be reactive edema to the severe adjacent degenerative facet joint changes, marrow contusion, or inc omplete fracture. Early/incomplete left L5 pars defect. Multilevel mild lumbar degenerative disc disease. Multilevel moderate facet art hropathy.
--- NOTE | ~2023-03-16 | CT_ITS ---
EXAMINATION: CT thoracic lumbar wo con DATE: 03/16/2023 10:25 INDICATION: Low back pain. TECHNIQUE: Computed tomography (CT) of the thoracic and lumbar spine was performed without intravenou s contrast. Automated exposure control and iterative reconstruction technique were employed. The dose -length product was 1179.81 mGy-cm. COMPARISON: None FINDINGS: CT THORACIC SPINE: There are surgical changes in the stomach. There are changes of anterior fusion pr ocedure at C6-C7 with healed interbody bone graft and anterior plate and screws. Bone alignment is no rmal. There is mild chronic anterior wedging of T5-T7 vertebral bodies. There is mildly decreased dis c height from T3-T4 through T5-C6, moderately decreased disc height at T6-T7 and T7-T8, and mildly de creased disc height at T8-T9. There is multilevel facet joint osteoarthritis, severe in the upper tho racic spine. On the right, there is mild neural foraminal stenosis at T2-T3, T3-T4, T4-T5, and T5-T6. On the left, there is mild neural foraminal stenosis at T5-T6. No central canal stenosis. CT LUMBAR SPINE: Bone alignment is normal. Vertebral body heights and intervertebral disc heights are normal. The following disc levels are specifically discussed: L1-L2: The disc does not extend beyond the endplate margin. There is mild bilateral facet joint osteo arthritis. There is no neural foraminal stenosis. There is no central canal stenosis. L2-L3: The disc does not extend beyond the endplate margin. There is mild bilateral facet joint osteo arthritis. There is no neural foraminal stenosis. There is no central canal stenosis. L3-L4: The disc is bulging. There is severe bilateral facet joint osteoarthritis. There is mild bilat eral neural foraminal stenosis. There is mild central canal stenosis. L4-L5: The disc is bulging with superimposed large left subarticular zone extrusion. There is severe bilateral facet joint osteoarthritis. There is mild right and moderate left neural foraminal stenosis . There is mild central canal stenosis. There is severe stenosis of left lateral recess. L5-S1: The disc is bulging. There is severe bilateral facet joint osteoarthritis. There is mild bilat eral neural foraminal stenosis. There is mild central canal stenosis. IMPRESSION: 1. Moderate thoracic spondylosis. 2. Large extrusion at L4-L5 with severe stenosis of left lateral recess and moderate left neural fora khushi stenosis. Reviewed, dictated and finalized at location A. IMPRESSION: 1. Moderate thoracic spondylosis. 2. Large extrusion at L4-L5 with severe stenosis of left lateral recess and mod erate left neural foraminal stenosis.
[2023-03-16 08:11] VITALS: BP 121/98; PULSE 92; RESP 18; TEMP 36.1; O2SAT 97
[2023-03-16] MEDS: HYDROmorphone HCL INJ (*CRX) 1 MG/ML SYR 0.5 MG IV PUSH ×5 (09:20→20:37)
--- NOTE | 2023-03-16 09:25 | PC.NURSE ---
0.5mg IVP dilaudid given at 0920. Unable to scan per OCT.
[2023-03-16 09:35] LABS: Basophils Percent Auto 0.5 % (0.2-1.2); Eosinophils Percent Auto 0.5 % (0-4.4); Hematocrit 35.6 % (37.0-47.0); Hemoglobin 11.3 g/dL (12.0-15.0); Immature Granulocyte Absolute 0.01 K/mm3 (0.00-0.031); Immature Granulocyte Percent A 0.3 % (0-0.5); Lymphocytes Absolute Auto 1.45 K/mm3 (0.9-3.2); Lymphocytes Percent Auto 37.6 % (18.3-44.2); Mean Corpuscular HGB Conc 31.7 g/dl (32-36); Mean Corpuscular Hemoglobin 28.5 pg (26-34); Mean Corpuscular Volume 89.9 fl (80-100); Mean Platelet Volume 8.8 fl (7.4-10.4); Monocytes Absolute Auto 0.4 K/mm3 (0.1-0.6); Monocytes Percent Auto 10.6 % (2.6-8.5); Neutrophils Percent Auto 50.5 % (45.5-73.1); Platelet Count Result 304 k/mm3 (150-375); Red Blood Count 3.96 M/mm3 (4.2-5.4); Red Cell Distribution Width 14.5 % (11.5-14.5); White Blood Count 3.9 K/mm3 (4.5-10.0)
[2023-03-16 09:40] LABS: Alanine Aminotransferase 54 U/L (6-35); Albumin Level 4.1 g/dL (3.5-5.1); Alkaline Phosphatase 65 U/L (38-126); Anion Gap 5 mmol/L (8-16); Aspartate Amino Transferase 52 U/L (14-36); Bilirubin,Total 0.4 mg/dL (0.2-1.3); Blood Urea Nitrogen 18 mg/dL (7-17); Calcium 8.6 mg/dL (8.4-10.2); Carbon Dioxide 30 mmol/L (22-30); Chloride 99 mmol/L (98-107); Estimated CRCL calculation 97 ml/min; Estimated Glomerular Filt Rate > 60; Glucose 86 mg/dL (65-110); Potassium 4.3 mmol/L (3.4-5.0); Sodium 134 mmol/L (137-145)
--- NOTE | 2023-03-16 09:51 | ED.BACK ---
HPI - Back Pain/Injury General Chief Complaint: Back Pain/Injury Stated Complaint: Left hip pain Time Seen by Provider: 03/16/23 08:15 History of Present Illness HPI Narrative: This is a 42-year-old female with past history of fibromyalgia, chronic low back pain, POTS syndrome, who presents emergency department complaining of significant low back pain associated with left leg weakness. Patient states approximately 5 days ago she returned from a trip [place], where she had been walking for prolonged periods of time. This aggravated chronic low back pain with radiation to the left leg. She describes the pain as 7/10, throbbing, radiating from the low back to the left foot. She notes this sensation of needing to urinate but the inability to do so. She denies fevers, chills, or trauma. Related Data Home Medications Medication Instructions Recorded Confirmed clonazepam 1 mg tablet 1 mg PO QID PRN Anxiety 03/16/23 03/16/23 duloxetine 30 mg capsule,delayed 60 mg PO DAILY 03/16/23 03/16/23 release estradiol 1 mg tablet 1 mg PO DAILY 03/16/23 03/16/23 hydroxyzine pamoate 100 mg capsule 100 mg PO BID 03/16/23 03/16/23 ivabradine 5 mg tablet (Corlanor) 5 mg PO BID 03/16/23 03/16/23 midodrine 2.5 mg tablet 5 mg PO BID 03/16/23 03/16/23 ondansetron HCl 4 mg tablet 4 mg PO TID PRN Nausea 03/16/23 03/16/23 pantoprazole 40 mg tablet,delayed 40 mg PO BID 03/16/23 03/16/23 release rimegepant 75 mg disintegrating 75 mg PO EVERY OTHER DAY PRN 03/16/23 03/16/23 tablet (Nurtec ODT) Migraine Headache sodium chloride 500 mg BYMOUTH BID 03/16/23 03/16/23 sumatriptan succinate 100 mg tablet 100 mg PO BID PRN Migraine Headache 03/16/23 03/16/23 vilazodone 40 mg tablet 40 mg PO DAILY 03/16/23 03/16/23 Allergies Allergy/AdvReac Type Severity Reaction Status Date / Time cefaclor [From [facility]] Allergy Rash Verified 03/16/23 14:00 gabapentin Allergy Rash Verified 03/16/23 14:00 Penicillins Allergy Rash Verified 03/16/23 14:00 pregabalin [From Lyrica] Allergy Rash Verified 03/16/23 14:00 sulfamethoxazole Allergy Rash Verified 03/16/23 14:00 [From Septra] trimethoprim [From Septra] Allergy Rash Verified 03/16/23 14:00 Review of Systems Review of Systems: CONSTITUTIONAL: Denies fever, chills, or sweats. CARDIOVASCULAR: Denies chest pain, palpitations, or edema. RESPIRATORY: Denies cough or dyspnea. GASTROINTESTINAL: Denies abdominal pain, nausea, vomiting, or diarrhea. GENITOURINARY: Denies dysuria or hematuria. SKIN: Denies rash or itching. MUSCULOSKELETAL: Low back pain denies joint pain, or myalgia. NEUROLOGIC: Left leg weakness, left leg paresthesias denies headache, numbness, or dizziness PSYCHIATRIC: Denies anxiety or depression. [facility] Past Medical History Medical History (Updated 03/16/23 @ 17:46 by Fidel Pham MD) Chronic back pain Fibromyalgia Postural orthostatic tachycardia syndrome Surgical History Surgical History History of hysterectomy Family History Family History Father Malignant neoplasm of prostate Autoimmune disorder Other Breast cancer Sibling Lupus (systemic lupus erythematosus) Arthritis Heart defect Social History Social History (Updated 03/16/23 @ 13:49 by Radha Almaraz PA-C) Social History: Surrogate medical decision maker: Code status: Full code. Smoking status: Never smoker Alcohol intake: never Drinks per week: 1 Substance use: never Substance use type: marijuana Other substance usage details: medical marijuana Last use: 03/15/23 Lack of Transportation: No Lack of Food: Never True Current Housing: I Have Housing Concerned About Future Housing: No Difficulty Paying Gas/Electric Bills: No Difficulty Paying for Meds: No Currently Unemployed: No Education: Trade/Vocational Certificate Difficulty w/ Childcare or Family Car
[2023-03-16 10:12] VITALS: BP 139/91; PULSE 69; RESP 17; O2SAT 99
[2023-03-16] MEDS: DEXAMETHASONE 4 MG TABLET PO ×2 (12:01→17:13)
[2023-03-16 13:12] VITALS: BP 137/86; PULSE 74; RESP 17; TEMP 36.6; O2SAT 100
[2023-03-16 13:30] VITALS: BMI 27.1
--- NOTE | 2023-03-16 13:41 | ADMGEN ---
This patient, Amber Rodriguez, was admitted to [facility] Surg Room 303-01. Patient/family oriented to hospital policies and general routines including ID bracelet, bed and alarms, visiting hours, pain management, procedures, bathroom and other care routines, personal items, smoking policy, room service/diet, and visiting hours. Information on how to activate the Rapid Response Team has been discussed. Patient/Family are encouraged to report perceived risks to care and to ask questions if they do not understand what they are told or what they should do. Report from Amber in ER.
--- NOTE | 2023-03-16 13:47 | PM.IMHP ---
H&P: HPI History of Present Illness Date/Time: 03/16/23 13:30 Chief Complaint: Low back pain and left leg weakness. Narrative: This is a pleasant 42-year-old female with history of fibromyalgia, POTS syndrome, anxiety, and other comorbidities who presented to the emergency department via private vehicle for evaluation of left low back pain and left leg weakness. The patient provides the following history. Sometime in October she developed pain in the left lower back which she attributed to a bed she was sleeping on at a hotel while on vacation. Unfortunately the pain has not gotten much better and she goes to the chiropractor 3 times a week for treatment which seems to help briefly. More recently she traveled overseas and during that trip she had increasing pain in the back which she attributed to walking more. She was seen at a local clinic where she was prescribed ibuprofen with codeine which seemed to help somewhat. She returned back to the states 5 days ago and she was feeling okay the 1st night however as the the last few days have passed she has developed increasing pain in the left low back radiating down the buttock and leg and sometimes even up into the neck. The pain at times is sharp and shooting in nature and sometimes dull with pins and needles and decreased sensation with some weakness. She has a history of falls due to syncope related to POTS but none recently and she does not recall injuring her back. She denies saddle anesthesia, urinary retention, and bowel incontinence. CT of the thoracic and lumbar spine done in the ED showed a large extrusion at L4-L5 with severe stenosis of the left lateral recess and moderate left neural foraminal stenosis. She is being admitted in this setting for pain control and neuro surgery evaluation. Review of Systems Review of Systems: Twelve systems were reviewed and are negative except for as per HPI. [facility] Past Medical History Medical History (Updated 03/16/23 @ 20:22 by Radha Almraaz PA-C) Depression with anxiety Fibromyalgia Posttraumatic stress disorder Postural orthostatic tachycardia syndrome Surgical History Surgical History (Updated 03/16/23 @ 20:19 by Radha Almaraz PA-C) History of adenoidectomy History of cervical spinal surgery History of hysterectomy History of resection of rib Thoracic outlet syndrome surgery. History of weight loss surgery [facility] Family History Family History Father Malignant neoplasm of prostate Autoimmune disorder Other Breast cancer Sibling Lupus (systemic lupus erythematosus) Arthritis Heart defect Social History Social History (Updated 03/16/23 @ 20:20 by Radha Almaraz PA-C) Social History: Surrogate medical decision maker: Antony Rodriguez, daughter. Code status: Full code. Smoking status: Never smoker Alcohol intake: never Drinks per week: 1 Substance use: never Substance use type: marijuana Other substance usage details: medical marijuana Last use: 03/15/23 Lack of Transportation: No Lack of Food: Never True Current Housing: I Have Housing Concerned About Future Housing: No Difficulty Paying Gas/Electric Bills: No Difficulty Paying for Meds: No Currently Unemployed: No Education: Trade/Vocational Certificate Difficulty w/ Childcare or Family Care: No Spiritual care concerns: No Meds Home Medications and Allergies Home Medications Medication Instructions Recorded Confirmed Type clonazepam 1 mg tablet 1 mg PO QID PRN Anxiety 03/16/23 03/16/23 History duloxetine 30 mg capsule,delayed 60 mg PO DAILY 03/16/23 03/16/23 History release estradiol 1 mg tablet 1 mg PO DAILY 03/16/23 03/16/23 History hydroxyzine pamoate 100 mg capsule 100 mg PO BID 03/16/23 03/16/23 History ivabradine 5 mg tablet (Corlanor) 5 mg PO BID 03/16/23 03/16/23 History midodrine 2.5 mg tablet 5 mg PO BID 03/16/23 03/16/23 History onda
[2023-03-16] MEDS: clonazePAM (*CRX) 0.5 MG TABLET 1 MG PO ×2 (15:03→20:37)
[2023-03-16] MEDS: PANTOPRAZOLE 40 MG TABLET PO (16:54)
[2023-03-16] MEDS: SODIUM CHLORIDE 500 MG TABLET PO (16:54)
[2023-03-16] MEDS: MIDODRINE HCL 2.5 MG TABLET 5 MG PO (16:55)
[2023-03-16] MEDS: hydrOXYzine pamoate 25 MG CAPSULE 100 MG PO (17:00)
[2023-03-16] MEDS: HYDROcodone/acetaminophen (*CRX) 5-325 MG TABLET 1 TAB PO ×2 (17:04→23:42)
[2023-03-16 23:35] VITALS: BP 125/76; PULSE 67; RESP 16; TEMP 35.5; O2SAT 100
[2023-03-16] MEDS: LORazepam INJ (*CRX) 2 MG/ML VIAL 0.5 MG IV PUSH (23:41)
[2023-03-17] MEDS: DEXAMETHASONE 4 MG TABLET PO ×3 (00:19→11:03)
[2023-03-17] MEDS: HYDROmorphone HCL INJ (*CRX) 1 MG/ML SYR 0.5 MG IV PUSH ×5 (01:15→13:48)
[2023-03-17] MEDS: clonazePAM (*CRX) 0.5 MG TABLET 1 MG PO ×2 (03:21→11:04)
[2023-03-17 06:00] VITALS: BP 114/67; PULSE 63; RESP 18; TEMP 35.8; O2SAT 100
[2023-03-17 06:12] LABS: Hematocrit 37.7 % (37.0-47.0); Hemoglobin 12.5 g/dL (12.0-15.0); Mean Corpuscular HGB Conc 33.2 g/dl (32-36); Mean Corpuscular Hemoglobin 29.1 pg (26-34); Mean Corpuscular Volume 87.7 fl (80-100); Mean Platelet Volume 8.9 fl (7.4-10.4); Platelet Count Result 325 k/mm3 (150-375); Red Cell Distribution Width 13.9 % (11.5-14.5); White Blood Count 3.5 K/mm3 (4.5-10.0)
[2023-03-17 06:22] LABS: Alanine Aminotransferase 52 U/L (6-35); Albumin Level 4.6 g/dL (3.5-5.1); Alkaline Phosphatase 71 U/L (38-126); Anion Gap 6 mmol/L (8-16); Aspartate Amino Transferase 36 U/L (14-36); Bilirubin,Total 0.4 mg/dL (0.2-1.3); Blood Urea Nitrogen 12 mg/dL (7-17); Calcium 9.4 mg/dL (8.4-10.2); Carbon Dioxide 30 mmol/L (22-30); Chloride 101 mmol/L (98-107); Estimated CRCL calculation 97 ml/min; Estimated Glomerular Filt Rate > 60; Glucose 150 mg/dL (65-110); Magnesium 2.1 mg/dL (1.6-2.3); Potassium 4.8 mmol/L (3.4-5.0); Sodium 137 mmol/L (137-145)
[2023-03-17] MEDS: HYDROcodone/acetaminophen (*CRX) 5-325 MG TABLET 1 TAB PO (06:31)
[2023-03-17 07:42] VITALS: O2SAT 96
[2023-03-17] MEDS: DULoxetine HCL 60 MG CAPSULE.DR PO (08:02)
[2023-03-17] MEDS: MIDODRINE HCL 2.5 MG TABLET 5 MG PO (08:02)
[2023-03-17] MEDS: estradioL 1 MG TABLET PO (08:02)
[2023-03-17] MEDS: PANTOPRAZOLE 40 MG TABLET PO (08:03)
[2023-03-17] MEDS: SODIUM CHLORIDE 500 MG TABLET PO (08:03)
[2023-03-17] MEDS: hydrOXYzine pamoate 25 MG CAPSULE 100 MG PO (08:07)
[2023-03-17] MEDS: LIDOCAINE 5% PATCH 1 PATCH TRANSDERM (10:11)
--- NOTE | 2023-03-17 12:43 | PM.SD2 ---
Same Day Admit/Disch: HPI History of Present Illness Chief complaint: L4-5 Extrusion with Severe Stenosis [facility] Past Medical History Medical History (Updated 03/17/23 @ 12:56 by Wandy Velasquez MD) Depression with anxiety Fibromyalgia Posttraumatic stress disorder Postural orthostatic tachycardia syndrome Surgical History Surgical History (Updated 03/16/23 @ 20:19 by Radha Almaraz PA-C) History of adenoidectomy History of cervical spinal surgery History of hysterectomy History of resection of rib Thoracic outlet syndrome surgery. History of weight loss surgery G[facility] Family History Family History Father Malignant neoplasm of prostate Autoimmune disorder Other Breast cancer Sibling Lupus (systemic lupus erythematosus) Arthritis Heart defect Social History Social History (Updated 03/16/23 @ 20:20 by Radha Almaraz PA-C) Social History: Surrogate medical decision maker: Antony Rodriguez, daughter. Code status: Full code. Smoking status: Never smoker Alcohol intake: never Drinks per week: 1 Substance use: never Substance use type: marijuana Other substance usage details: medical marijuana Last use: 03/15/23 Lack of Transportation: No Lack of Food: Never True Current Housing: I Have Housing Concerned About Future Housing: No Difficulty Paying Gas/Electric Bills: No Difficulty Paying for Meds: No Currently Unemployed: No Education: Trade/Vocational Certificate Difficulty w/ Childcare or Family Care: No Spiritual care concerns: No Same Day Admit/Disch: Med Pre-admit Medications Home Medications Medication Instructions Recorded Confirmed Type clonazepam 1 mg tablet 1 mg PO QID PRN Anxiety 03/16/23 03/16/23 History duloxetine 30 mg capsule,delayed 60 mg PO DAILY 03/16/23 03/16/23 History release estradiol 1 mg tablet 1 mg PO DAILY 03/16/23 03/16/23 History hydroxyzine pamoate 100 mg capsule 100 mg PO BID 03/16/23 03/16/23 History ivabradine 5 mg tablet (Corlanor) 5 mg PO BID 03/16/23 03/16/23 History midodrine 2.5 mg tablet 5 mg PO BID 03/16/23 03/16/23 History ondansetron HCl 4 mg tablet 4 mg PO TID PRN Nausea 03/16/23 03/16/23 History pantoprazole 40 mg tablet,delayed 40 mg PO BID 03/16/23 03/16/23 History release rimegepant 75 mg disintegrating 75 mg PO EVERY OTHER DAY PRN 03/16/23 03/16/23 History tablet (Nurtec ODT) Migraine Headache sodium chloride 500 mg BYMOUTH BID 03/16/23 03/16/23 History sumatriptan succinate 100 mg tablet 100 mg PO BID PRN Migraine Headache 03/16/23 03/16/23 History vilazodone 40 mg tablet 40 mg PO DAILY 03/16/23 03/16/23 History DS: Data Data Completed and Pending Labs on day of discharge: Labs from last 24 hours 03/17/23 05:49 WBC 3.5 L RBC 4.30 Hgb 12.5 Hct 37.7 MCV 87.7 MCH 29.1 MCHC 33.2 RDW 13.9 Plt Count 325 MPV 8.9 Sodium 137 Potassium 4.8 Chloride 101 Carbon Dioxide 30 Anion Gap 6 L BUN 12 D Creatinine 0.70 Estim Creat Clear Calc 97 Estimated GFR > 60 Glucose 150 H Calcium 9.4 Magnesium 2.1 Total Bilirubin 0.4 AST 36 ALT 52 H Alkaline Phosphatase 71 Total Protein 8.0 Albumin 4.6 DS: Summary Time Spent with Patient Time attestation: Total time spent providing and/or coordinating discharge services: Discharge Plan Discharge Consulting providers: Candelario Molina; Wandy Velasquez; German Brown Discharge Medications: No Action hydroxyzine pamoate 100 mg capsule 100 mg PO BID sumatriptan succinate 100 mg tablet 100 mg PO BID PRN (Reason: Migraine Headache) ondansetron HCl 4 mg tablet 4 mg PO TID PRN (Reason: Nausea) clonazepam 1 mg tablet 1 mg PO QID PRN (Reason: Anxiety) estradiol 1 mg tablet 1 mg PO DAILY pantoprazole 40 mg tablet,delayed release (DR/EC) 40 mg PO BID midodrine 2.5 mg tablet 5 mg PO BID duloxetine 30 mg ca
--- NOTE | 2023-03-17 12:54 | WPDNEUROSGCN ---
Assessment and Plan Assessment and plan (1) Synovial cyst of lumbar facet joint: Code(s): M71.38 - Other bursal cyst, other site Status: Acute (2) Lumbar radiculopathy, acute: Code(s): M54.16 - Radiculopathy, lumbar region Status: Acute Plan Ms. Rodriguez is a 42-year-old female with history of fibromyalgia, POTS syndrome, anxiety/depression who has had radicular left leg pain since October which has acutely worsened in the last 5 days with paresthesias involving the entire leg. She does have slight pain-limited weakness distally in her left foot and dysesthesias to touch. MRI lumbar spine shows a left-sided synovial cyst and thickened ligamentum flavum at L4-5 causing significant lateral recess stenosis and [id number] central stenosis. I discussed the imaging findings with her in detail. I offered her a couple treatment options: first, to attempt an epidural steroid injection at this level, and second, to proceed with surgery in the form of a left L4-5 hemilaminectomy and resection of synovial cyst. We discussed the risks and benefits of each procedure as well as the restrictions that would be required after surgery. She requested that I discuss this over the phone with her father which I did. I also discussed with Anesthesia whether this is a procedure we could schedule tomorrow; Dr. Pham indicated that, unless it were an emergency, this case could not be accommodated until next week. I do not believe this is a true neurologic emergency. She also asked if she could be transferred to [facility] or [facility] to have surgery today, which I informed her would be highly unlikely to happen. The patient was very upset about her care here at [facility], both in terms of her lack of pain control and treatment by the staff. She expected to have surgery performed today despite not being NPO or having seen a neurosurgeon yet. She was very upset that I advised her not to take a trip to [place] that she has planned this coming week if she were to have surgery this week. Ultimately, she elected to leave the hospital today and requested to get an NAZ today (which I told her would most likely not happen). I offered to schedule her for surgery as an outpatient or to arrange outpatient follow up with myself either here at [facility] or at my clinic in [place]. She states she is done with Jace and prefers to talk to Dr. Tripathi who performed her thoracic outlet surgery to see if he can do this surgery for her or if he can refer her to another neurosurgeon. Ultimately, since she prefers the route of NAZ, I think her best bet would be to see if Dr. Colón can still see her in clinic on Sunday. I am happy to see her in clinic if she changes her mind about follow up and surgery. Consult date: 03/17/23 HPI: Amber Rodriguez is a 42 year old female with history of anxiety, depression, POTS syndrome, fibromyalgia, previous ACDF, and surgery for left-sided thoracic outlet syndrome who was admitted from the ER yesterday with severe left leg pain. In October, she started having left-sided lower back pain radiating down the back of the leg to the ankle which she managed somewhat effectively through chiropractic treatment, acupuncture, and massage therapy. She had been taking Tylenol for pain which she had to stop a month ago due to elevated liver enzymes. She has had NAZ in her back for many years due to chronic low back pain, both when she was living in [facility] and more recently through a PM in [place]. She has an appointment with Dr. Colón on Sunday to discuss an injection for her leg pain. Unfortunately, since she returned from a trip to [place] this past Sunday, she has developed significantly-worsened left leg pain which is constant and encompasses the entire left leg including the foot. She has paresthesias involving the leg leg. She has had some difficulty initiating urination but has been able to void spontaneously. Her left leg has given out on her a couple times causing her
--- NOTE | 2023-03-17 14:45 | PM.DS ---
DS: Admitting Diagnosis Discharge Date 03/17/23 Admitting Diagnosis Intervertebral disc extrusion Low back pain Stenosis of lateral recess of lumbar spine Neural foraminal stenosis of lumbar spine Postural orthostatic tachycardia syndrome (POTS) Posttraumatic stress disorder Depression with anxiety Fibromyalgia DS: Discharge Diagnosis Discharge Diagnosis (1) Synovial cyst of lumbar facet joint: Code(s): M71.38 - Other bursal cyst, other site Status: Acute (2) Neural foraminal stenosis of lumbar spine: Code(s): M48.061 - Spinal stenosis, lumbar region without neurogenic claudication Status: Acute (3) Stenosis of lateral recess of lumbar spine: Code(s): M48.061 - Spinal stenosis, lumbar region without neurogenic claudication Status: Acute (4) Depression with anxiety: Code(s): F41.8 - Other specified anxiety disorders Status: Acute (5) Fibromyalgia: Code(s): M79.7 - Fibromyalgia Status: Acute (6) Posttraumatic stress disorder: Code(s): F43.10 - Post-traumatic stress disorder, unspecified Status: Acute (7) Postural orthostatic tachycardia syndrome: Code(s): G90.A - Postural orthostatic tachycardia syndrome [POTS] Status: Acute (8) Left leg weakness: Code(s): R29.898 - Other symptoms and signs involving the musculoskeletal system Status: Acute DS: Summary Hospital Course Reason for hospitalization: Patient was admitted for Neurosurgery consultation, MRI and assist with pain control Hospital Course: Patient was admitted under observation status to obtain MRI of the lumbar spine and neurosurgical consult due to lumbar radiculopathy with disc bulging and severe stenosis of the left recess and left neural foraminal stenosis at the L4-L5 level with accompanied left leg weakness. MRI was completed with findings as listed below. Patient was seen by Neurosurgery early this afternoon. Patient got upset that surgery could not happen today and she stated that she wanted to leave and seek 2nd opinion from her prior neurosurgeon. Dr. Velasquez attempted to get patient scheduled for surgery tomorrow but due to already pending cases that was not possible. Dr. Velasquez also offered discharge with clinic follow-up and scheduled outpatient surgery or continued inpatient stay to have surgery in a few days but patient declined both of these options. I spoke to patient who was very upset at the care she received overnight repeatedly saying that nursing staff be little her and talked about her in the hallway causing her to have a panic attack. Patient was again presented with the options of continuing admission for inpatient surgery or following up with Dr. Velasquez in the clinic. Patient then stated that she was very upset that her pain was never completely controlled stating that she was admitted to have surgery and to have her pain gone. Explained to patient that the reason for her admission was to consult with Neurosurgery which has happened and rule out the need for emergency surgery which has happened. Again patient was offered the opportunity to remain admitted and she adamantly insisted on being discharged with prescription for pain medication. Patient then began to argue about which pain medication will be prescribed and how much pain medication will be prescribed. Patient's RN Jovita was present at the bedside for this conversation. We informed patient that we can only write for a time limited supply of controlled substances and patient was offered 12 tabs. She began to get upset again demanding to speak to my attending. I told patient that I could ask the attending if he would see her but it would be up to him whether any pain medication would be prescribed if that is what she wanted to do. She stated that she just wanted a prescription for pain medicine and wanted to see her neurosurgeon as an outpatient. I did discuss this case with Dr. Braun but cortez
== END 2023-03-17 14:38 | disposition home or self-care (01) ==
LOC: ANHED 09:19 → ANH3MEDSUR 12:42
PROVIDERS: Physician Assistant; Admitting Provider Internal Medicine; Emergency Provider Preventive Medicine Aerospace Medicine; PCP Internal Medicine; Visit Provider Internal Medicine
DX: M71.38 Other bursal cyst, other site (principal); M48.061 Spinal stenosis, lumbar region without neurogenic claudication; M51.26 Other intervertebral disc displacement, lumbar region; M54.42 Lumbago with sciatica, left side; M47.815 Spondylosis without myelopathy or radiculopathy, thoracolumbar region; M47.816 Spondylosis without myelopathy or radiculopathy, lumbar region; M51.36 Other intervertebral disc degeneration, lumbar region; G90.A Postural orthostatic tachycardia syndrome [POTS]; R29.898 Other symptoms and signs involving the musculoskeletal system; F43.10 Post-traumatic stress disorder, unspecified; F41.8 Other specified anxiety disorders; M79.7 Fibromyalgia; G43.909 Migraine, unspecified, not intractable, without status migrainosus; F12.90 Cannabis use, unspecified, uncomplicated; Z79.890 Hormone replacement therapy; Z79.899 Other long term (current) drug therapy; Z82.49 Family history of ischemic heart disease and other diseases of the circulatory system
CPT/HCPCS: 36415; 72128; 72131; 72148; 80053; 83735; 85025; 85027; 96374; 96376; 99285; A9270; G0378; J1170; J2060; J8540

== ENCOUNTER → 2023-04-09 14:57 | Outpatient (CLI) | payer MEDICARE, MEDICAID, SELFPAY ==
--- NOTE | ~2023-04-09 | XR_ITS ---
EXAMINATION: XR abdomen/kub 1V DATE: 04/09/2023 15:14 INDICATION: Unspecified abdominal pain. TECHNIQUE: A supine view of the abdomen on 2 radiographs was obtained. COMPARISON: CT abdomen and pelvis 02/03/2023 FINDINGS: There are no dilated loops of bowel. There is a paucity of stool in the colon. There are ph leboliths in the pelvis. There is no urolithiasis. IMPRESSION: 1. Normal bowel gas pattern. Reviewed, dictated and finalized at location A.
== END ==
PROVIDERS: PCP Internal Medicine; Visit Provider Internal Medicine
DX: R10.9 Unspecified abdominal pain (principal)
CPT/HCPCS: 74018